=== PATIENT | female | born 1950 | race Hispanic/Latino ===

== ENCOUNTER 2024-11-13 19:48 | Emergency (ER) | payer OTHER ==
--- NOTE | 2024-11-13 21:23 | RAD REPORT ---
EXAM: C Spine Wo Con HISTORY:neck pain COMPARISON: None TECHNIQUE: Multiple contiguous axial images were obtained in a CT of the cervical spine without contr ast. Sagittal and coronal reformats were performed. One or more of the following dose reduction techniques were used: Automated exposure control, adjustment of the mA and kV according to patient si ze, and iterative reconstruction. Unless otherwise specified, incidental findings do not require dedicated imaging follow-up. FINDINGS: Mild anterior subluxation C3 on C4. Mild posterior subluxation C4 on C5 and C5 on C6. Minimal posteri or subluxation C6 on C7. No fracture or dislocation Disc bulge and osteophytes C4-5 and C5-6 results in mild to moderate central spinal stenosis. IMPRESSION: No fracture seen Spondylosis C4-5 and C5-6 results in mild to moderate central spinal stenosis If clinically indicated further evaluation could be obtained with nonemergent MRI
[2024-11-13] MEDS ORDERED: KETOROLAC 30 MG/ML INJ ONE (21:25)
[2024-11-13] MEDS ORDERED: CYCLOBENZAPRINE 10 MG TAB ONE (21:26)
[2024-11-13 21:29] LABS: Absolute Lymphocytes (CBC) 2.2 K/uL (0.7-4.9); Hematocrit 34.2 % (36.0-45.0); Hemoglobin 11.9 g/dL (12.0-15.0); MCH 30.3 pg (27.0-35.0); MCHC 34.8 g/dL (32.0-36.0); MCV 87.1 fL (80-100); MPV 7.9 fL (7.6-11.3); Nucleated RBC Absolute Count 0.0 (0-0); Nucleated Red Blood Cells % 0.0 % (0-0); RBC Red Blood Cell Count 3.92 M/uL (3.86-4.86); White Blood Count 6.20 thou/uL (4.3-10.9)
[2024-11-13 21:36] LABS: PT Prothrombin Time 11.6 SECONDS (10-13.0); Protime INR 1.03
--- NOTE | 2024-11-13 21:41 | RAD REPORT ---
EXAM: CT CHEST, ABDOMEN AND PELVIS WITHOUT CONTRAST CLINICAL INDICATION: Chest and abdominal pain. Dysphasia TECHNIQUE: CT chest, abdomen and pelvis was performed, without IV contrast, as per department protoco l. Axial, sagittal and coronal reconstructions were obtained. One or more of the following dose reduction techniques were used: Automated exposure control, adjustment of the mA and/or kV according to the patient size, and/or iterative reconstruction. Unless otherwise specified, incidental findings do not require dedicated imaging follow-up. The lack of IV and oral contrast limits evaluation of the mediastinum, kobi, vessels, organs and giana l. COMPARISON: None FINDINGS: Ill-defined 2 cm mostly groundglass opacity right upper lobe. Mild right lower lobe opacities probably chronic. A few areas of scarring or subsegmental atelectasis left lower lobe. No mediastinal or hilar lymphadenopathy seen. No pleural effusion. No pericardial effusion. Small hiatal hernia. No gross abnormality of the esophagus although evaluation of the intrinsic lesio ns somewhat limited. Left nephrectomy Right kidney grossly normal Liver, spleen, pancreas and adrenals grossly normal Moderate amount of stool within the transverse and right colon. Hysterectomy. No adnexal mass. There is no evidence of diverticulitis Small umbilical hernia 12 mm calcification is present at the junction of the cecum and appendix. The appendix is normal size . No stranding within the adjacent fat. IMPRESSION: Ill-defined mostly groundglass opacity right upper lobe .Most likely this is either inflammatory or s carring. It is recommended that patient have a CT chest in 3 months to assess stability Left nephrectomy Moderate amount of stool right and transverse colon
--- NOTE | 2024-11-13 21:42 | RAD REPORT ---
Procedure: Chest Single View HISTORY: Chest pain FINDINGS: Small right upper lobe opacity seen on the CT chest same date is not well visualized on this exam. Pl ease refer to the CT report for recommendation The lungs appear clear of acute infiltrate. No significant pleural effusion noted. The heart is normal size.
[2024-11-13 21:52] LABS: ALT/SGPT 19 U/L (13-56); AST/SGOT 16 U/L (15-37); Albumin 3.5 g/dL (3.4-5.0); Albumin/Globulin Ratio 0.9 (1.1-1.8); Alkaline Phosphatase 105 U/L (45-117); Anion Gap 9.5 mEq/L (5.0-15.0); BUN Blood Urea Nitrogen 21 mg/dL (7-18); Globulin 3.8 g/dL (2.3-3.5); Glucose Level 112 mg/dL (74-106); Magnesium 2.1 mg/dL (1.6-2.4); NT PRO-BNP 225 pg/mL (<450); Potassium 3.5 mEq/L (3.5-5.1); Troponin High Sensitivity 5.3 pg/mL (<58.9)
[2024-11-13 21:53] LABS: Bilirubin Indirect, Calculated 0.3 mg/dL (0.2-0.8)
--- NOTE | 2024-11-13 23:29 | EDPHYS ---
Physician Documentation [facility] Name: Roseanne Juárez Age: 74 yrs Sex: Female : 1950 Arrival Date: 11/13/2024 Time: 19:48 Bed DX4 Private MD: ED Physician Akira Munoz HPI: 11/13 20:04 This 74 yrs old Other Race Female presents to ER via Unassigned with complaints of sp4 Epigastric Pain, Neck Pain, <24hrs Old, under breast pain, Dizziness. 11/14 07:21 74-year-old female presents with complaint of chronic persistent neck pain worsening sp4 today associated with feeling unwell and dizziness.. Historical: - Allergies: 11/13 20:38 Morphine; me1 20:38 Iodine; me1 - PMHx: 20:38 kidney cancer; Hypertensive disorder; Hypothyroidism; Diverticulitis; Gastroesophageal me1 reflux disease; hernia; - PSHx: 20:38 Total abdominal hysterectomy; excision of left kidney; Operative procedure on knee; me1 - Immunization history:: Adult Immunizations up to date. - Infectious Disease History:: Denies. - Social history:: Smoking status: Patient denies any tobacco usage or history of. - Family history:: not pertinent. ROS: 11/14 07:22 Constitutional: Negative for fever, chills, and weight loss, positive dizziness, sp4 positive for neck pain, positive for feeling unwell, positive epigastric pain All other systems are negative, Exam: 07:19 Constitutional: This is a well developed, well nourished patient who is awake, alert, sp4 and in no acute distress. Head/Face: Normocephalic, atraumatic. Eyes: Pupils equal round and reactive to light, extra-ocular motions intact. Lids and lashes normal. Conjunctiva and sclera are not injected. Cornea within normal limits. Periorbital areas with no swelling, redness, or edema. ENT: Nares patent. No nasal discharge, no septal abnormalities noted. Tympanic membranes are normal and external auditory canals are clear. Oropharynx with no redness, swelling, or masses, exudates, or evidence of obstruction, uvula midline. Mucous membranes moist. Neck: Trachea midline, no thyromegaly or masses palpated, and no cervical lymphadenopathy. Supple, full range of motion without nuchal rigidity, or vertebral point tenderness. Chest/axilla: Normal chest wall appearance and motion. Nontender with no deformity. No lesions are appreciated. Cardiovascular: Regular rate and rhythm with a normal S1 and S2. No gallops, murmurs, or rubs. No pulse deficits. Respiratory: Lungs have equal breath sounds bilaterally, clear to auscultation and percussion. No rales, rhonchi or wheezes noted. No increased work of breathing, no retractions or nasal flaring. Abdomen/GI: Soft, with normal bowel sounds. No distension or tympany. No guarding or rebound. No evidence of tenderness throughout. Back: No spinal tenderness. No costovertebral tenderness. Skin: Warm, dry with normal turgor. Normal color with no rashes, no lesions, and no evidence of cellulitis. MS/ Extremity: Pulses equal, no cyanosis. Neurovascular intact. Full, normal range of motion. Neuro: Awake and alert, GCS 15, oriented to person, place, time, and situation. Cranial nerves II-XII grossly intact. Motor strength 5/5 in all extremities. Sensory grossly intact. Psych: Awake, alert, with orientation to person, place and time. Behavior, mood, and affect are within normal limits 07:19 ECG was reviewed by the Attending Physician. EKG 2209 normal sinus rhythm normal EKG Vital Signs: 11/13 20:35 BP 157 / 80; Pulse 76; Resp 18; Temp 98.1; Pulse Ox 100% ; Weight 65.77 kg; Height 5 me1 ft. 3 in. ; Pain 7/10; 23:58 BP 140 / 81; Pulse 73; Resp 18 S; Pulse Ox 100% on R/A; ha1 20:35 Body Mass Index 25.69 (65.77 kg, 160.02 cm) me1 20:35 Pain Scale: Adult me1 [place] Coma Score: 11/14 07:19 Eye Response: spontaneous(4). Motor Response: obeys commands(6). Verbal Response: sp4 oriented(5). Total: 15. MDM: 11/13 20:05 Medical Screening Exam initiated sp4 11/14 07:22 Differential diagnosis: Cervical Raiculopathy Cervical Spondylosis cervical strain, sp4 Degenerative Disc Disease Diabetic Neuropathy torticollis. Data reviewed: vital signs, nurses notes, old medical records, lab test result(s), EKG, radiologic studies, CT scan. Consideration of Admission/Observation Escalation of care including admission/observation considered. 07:23 ED course: FINDINGS: Small right upper lobe opacity seen on the CT chest same date is sp4 not well visualized on this exam. Please refer to the CT report for recommendation The lungs appear clear of acute infiltrate. No significant pleural effusion noted. The heart is normal size. . ED course: FINDINGS: Mild anterior subluxation C3 on C4. Mild posterior subluxation C4 on C5 and C5 on C6. Minimal posterior subluxation C6 on C7. No fracture or dislocation Disc bulge and osteophytes C4-5 and C5-6 results in mild to moderate central spinal stenosis. IMPRESSION: No fracture seen Spondylosis C4-5 and C5-6 results in mild to moderate central spinal stenosis If clinically indicated further evaluation could be obtained with nonemergent MRI. ED course: COMPARISON: None FINDINGS: Ill-defined 2 cm mostly groundglass opacity right upper lobe. Mild right lower lobe opacities probably chronic. A few areas of scarring or subsegmental atelectasis left lower lobe. No mediastinal or hilar lymphadenopathy seen. No pleural effusion. No pericardial effusion. Small hiatal hernia. No gross abnormality of the esophagus although evaluation of the intrinsic lesions somewhat limited. Left nephrectomy Right kidney grossly normal Liver, spleen, pancreas and adrenals grossly normal Moderate amount of stool within the transverse and right colon. Hysterectomy. No adnexal mass. There is no evidence of diverticulitis Small umbilical hernia 12 mm calcification is present at the junction of the cecum and appendix. The appendix is normal size. No stranding within the adjacent fat. IMPRESSION: Ill-defined mostly ground glass opacity right upper lobe .Most likely this is either inflammatory or scarring. It is recommended that patient have a CT chest in 3 months to assess stability Left nephrectomy Moderate amount of stool right and transverse colon. . 11/13 20:05 Order name: Basic Metabolic Panel; Complete Time: 23:16 sp4 11/13 20:05 Order name: CBC with Diff; Complete Time: 23:16 sp4 11/13 20:05 Order name: LFT's; Complete Time: 23:16 sp4 11/13 20:05 Order name: Magnesium; Complete Time: 23:16 sp4 11/13 20:05 Order name: NT PRO-BNP; Complete Time: 23:16 sp4 11/13 20:05 Order name: PT-INR; Complete Time: 23:16 sp4 11/13 20:05 Order name: Troponin HS; Complete Time: 23:16 sp4 11/13 21:05 Order name: TSH sp4 11/13 21:05 Order name: T4 Free sp4 11/13 20:05 Order name: XRAY Chest (1 view); Complete Time: 23:16 sp4 11/13 20:50 Order name: CT C Spine; Complete Time: 23:16 sp4 11/13 20:50 Order name: CT Chest Abdomen Pelvis W/O Contrast; Complete Time: 23:16 sp4 11/13 20:05 Order name: EKG - Nurse/Tech; Complete Time: 22:11 sp4 11/13 20:05 Order name: IV Saline Lock; Complete Time: 21:17 sp4 11/13 20:05 Order name: Labs collected and sent; Complete Time: 21:17 sp4 11/13 20:05 Order name: O2 Per Protocol; Complete Time: 21:17 sp4 11/13 20:05 Order name: O2 Sat Monitoring; Complete Time: 21:17 sp4 EC/04 22:09 Rate is 65 beats/min. Rhythm is regular, Normal Sinus Rhythm. QRS [place] is Normal. AR sp4 interval is normal. QRS interval is normal. QT interval is normal. No Q waves. T waves are Normal. No ST changes noted. Clinical impression: Normal ECG. Interpreted by me. Reviewed by me. Administered Medications: 21:47 Drug: Ketorolac IVP 30 mg IVP once Route: IVP; Site: left antecubital; kl 22:10 Follow up: Response: No adverse reaction; Marked relief of symptoms; Pain is decreased ha1 21:47 Drug: Cyclobenzaprine PO 10 mg PO once Route: PO; kl 22:10 Follow up: Response: No adverse reaction; Marked relief of symptoms ha1 Disposition Summary: 11/13/24 23:29 Discharge Ordered Notes: Location: Home sp4 Problem: new sp4 Symptoms: have improved sp4 Condition: Stable sp4 Diagnosis - Cervical spondylosis, degenerative disc disease of the C-spine, acute moderate sp4 constipation, right upper lung opacification Followup: sp4 - With: Rayo Quinn MD - When: 7 - 10 days - Reason: Recheck today's complaints Discharge Instructions: - Discharge Summary Sheet sp4 - Degenerative Disk Disease sp4 Forms: - Patient Portal Instructions sp4 Prescriptions: - Cyclobenzaprine 10 mg Oral Tablet - take 1 tablet ORAL route every 8 hours As needed; 30 tablet; Refills: 0, sp4 Product Selection Permitted - Tramadol 50 mg Oral tablet - take 1 tablet ORAL route every 8 hours as needed; 25 tablet; Refills: 0, sp4 Product Selection Permitted Signatures: Dispatcher [employer] EDOmaira Barajas RN RN Akira Muller MD MD sp4 Arianna Jama RN RN dc1 Gianna Salazar RN 1 Corrections: (The following items were deleted from the chart) 20:05 20:05 BASIC METABOLIC PANEL+C.LAB.BRZ ordered. EDMS EDMS 20:05 20:05 CBC+H.LAB.BRZ ordered. EDMS EDMS 20:05 20:05 HEPATIC FUNCTION+C.LAB.BRZ ordered. EDMS EDMS 20:05 20:05 MAGNESIUM+C.LAB.BRZ ordered. EDMS EDMS 20:05 20:05 PROBNP+C.LAB.BRZ ordered. EDMS EDMS 20:05 20:05 PROTIME (+INR)+COAG.LAB.BRZ ordered. EDMS EDMS 20:05 20:05 Troponin High Sensitivity+C.LAB.BRZ ordered. EDMS EDMS 20:05 20:05 Chest Single View+RAD.RAD.BRZ ordered. EDMS EDMS 20:50 20:50 C Spine Wo Con+CT.RAD.BRZ ordered. EDMS EDMS 20:50 20:50 Chest Abdomen Pelvis Wo Con+CT.RAD.BRZ ordered. EDMS EDMS 21:05 21:05 THYROID STIMULAT HORMONE+C.LAB.BRZ ordered. EDMS EDMS 21:05 21:05 T4 FREE+C.LAB.BRZ ordered. EDMS EDMS
--- NOTE | 2024-11-13 23:29 | ER ---
Nurse's Notes [facility] Name: Roseanne Juárez Age: 74 yrs Sex: Female : 1950 Arrival Date: 11/13/2024 Time: 19:48 Bed DX4 Private MD: Diagnosis: Cervical spondylosis, degenerative disc disease of the C-spine, acute moderate constipation, right upper lung opacification Presentation: 11/13 20:35 Chief complaint: Patient states: neck pain for a couple of days 08/19, epigastric pain me1 06/19 with intermittent sharp pains that are under left lateral ribs and dizziness for a couple of days. Coronavirus screen: Vaccine status: Patient reports receiving the 2nd dose of the covid vaccine. Ebola Screen: No symptoms or risks identified at this time. Initial Sepsis Screen: Does the patient meet any 2 criteria? No. Patient's initial sepsis screen is negative. Does the patient have a suspected source of infection? No. Patient's initial sepsis screen is negative. Risk Assessment: Do you want to hurt yourself or someone else? Patient reports no desire to harm self or others. Onset of symptoms is unknown. 20:35 Method Of Arrival: Ambulatory me1 20:35 Acuity: JUAN MANUEL 3 me1 Triage Assessment: 22:00 General: Appears uncomfortable, Behavior is calm. Pain: Complains of pain in NECK AND ha1 ARMS. Neuro: Level of Consciousness is awake, alert, obeys commands, Oriented to person, place, time, situation. Cardiovascular: Capillary refill < 3 seconds Patient's skin is warm and dry. Respiratory: Airway is patent Respiratory effort is even, unlabored, Respiratory pattern is symmetrical. Historical: - Allergies: 20:38 Morphine; me1 20:38 Iodine; me1 - PMHx: 20:38 kidney cancer; Hypertensive disorder; Hypothyroidism; Diverticulitis; Gastroesophageal me1 reflux disease; hernia; - PSHx: 20:38 Total abdominal hysterectomy; excision of left kidney; Operative procedure on knee; me1 - Immunization history:: Adult Immunizations up to date. - Infectious Disease History:: Denies. - Social history:: Smoking status: Patient denies any tobacco usage or history of. - Family history:: not pertinent. Screenin:55 [facility] ED Fall Risk Assessment (Adult) History of falling in the last 3 months, ha1 including since admission No falls in past 3 months (0 pts) Confusion or Disorientation No (0 pts) Intoxicated or Sedated No (0 pts) Impaired Gait No (0 pts) Mobility Assist Device Used No (0 pt) Altered Elimination No (0 pt) Score/Fall Risk Level 0 - 2 = Low Risk Oriented to surroundings, Maintained a safe environment, Educated pt \T\ family on fall prevention, incl call for assistance when getting out of bed, Hourly rounding (assess needs \T\ fall precautionary measures) done. Abuse screen: Denies threats or abuse. Denies injuries from another. Nutritional screening: No deficits noted. Tuberculosis screening: No symptoms or risk factors identified. Assessment: 23:58 Reassessment: Patient and/or family updated on plan of care and expected duration. Pain ha1 level reassessed. Patient is alert, oriented x 3, equal unlabored respirations, skin warm/dry/pink. Patient states feeling better. Patient states symptoms have improved. Vital Signs: 20:35 BP 157 / 80; Pulse 76; Resp 18; Temp 98.1; Pulse Ox 100% ; Weight 65.77 kg; Height 5 me1 ft. 3 in. ; Pain 7/10; 23:58 BP 140 / 81; Pulse 73; Resp 18 S; Pulse Ox 100% on R/A; ha1 20:35 Body Mass Index 25.69 (65.77 kg, 160.02 cm) me1 20:35 Pain Scale: Adult me1 [place] Coma Score: 11/14 07:19 Eye Response: spontaneous(4). Motor Response: obeys commands(6). Verbal Response: sp4 oriented(5). Total: 15. ED Course: 11/13 19:56 Patient arrived in ED. im 20:04 Akira Munoz MD is Attending Physician. sp4 20:35 Patient has correct armband on for positive identification. Bed in low position. Call ha1 light in reach. Side rails up X 1. 20:38 Triage completed. me1 20:38 Arm band placed on Patient placed in waiting room. me1 21:08 XRAY Chest (1 view) In Process Unspecified. EDMS 21:09 CT C Spine In Process Unspecified. EDMS 21:09 CT Chest Abdomen Pelvis W/O Contrast In Process Unspecified. EDMS 21:17 Basic Metabolic Panel Sent. ha1 21:17 CBC with Diff Sent. ha1 21:17 LFT's Sent. ha1 21:17 Magnesium Sent. ha1 21:17 NT PRO-BNP Sent. ha1 21:17 PT-INR Sent. ha1 21:17 Troponin HS Sent. ha1 22:11 EKG done, by oil burner technician. reviewed by Akira Munoz MD. ts3 23:28 Rayo Quinn MD is Referral Physician. sp4 23:57 No provider procedures requiring assistance completed. IV discontinued, intact, ha1 bleeding controlled, No redness/swelling at site. Pressure dressing applied. Administered Medications: 21:47 Drug: Ketorolac IVP 30 mg IVP once Route: IVP; Site: left antecubital; kl 22:10 Follow up: Response: No adverse reaction; Marked relief of symptoms; Pain is decreased ha1 21:47 Drug: Cyclobenzaprine PO 10 mg PO once Route: PO; kl 22:10 Follow up: Response: No adverse reaction; Marked relief of symptoms ha1 Medication: 23:56 VIS not applicable for this client. ha1 Outcome: 23:29 Discharge ordered by . sp4 23:57 Discharged to home ambulatory, with family, ha1 23:57 Condition: stable 23:57 Discharge instructions given to patient, Instructed on discharge instructions, follow up and referral plans. medication usage, Demonstrated understanding of instructions, follow-up care, medications, Prescriptions given X 2, 23:58 Patient left the ED. ha1 Signatures: Dispatcher [employer] Omaira Womack RN RN kl Ayala, Heidy, RN RN ha1 Potepalov, Sergey, MD MD sp4 Mira Clarke Michelle, RN RN oh1 Estella Milton ts3
[2024-11-14 00:15] VITALS: TEMP 98.1; O2SAT 100
[2024-11-14 00:17] VITALS: BP 140/81
[2024-11-14 00:35] LABS: Thyroid Stimulating Hormone 2.79 uIU/mL (0.358-3.740)
== END 2024-11-13 23:58 | disposition home or self-care (01) ==
LOC: ER 19:48
DX: M47.892 Other spondylosis, cervical region (principal); K59.00 Constipation, unspecified; R91.8 Other nonspecific abnormal finding of lung field
CPT/HCPCS: 36415; 71045; 71250; 72125; 74176; 80048; 80076; 83735; 83880; 84484; 85025; 85610; 93005; 96374; 99284; J1885

== ENCOUNTER 2024-11-23 09:26 | Emergency (ER) | payer OTHER ==
--- NOTE | 2024-11-23 10:31 | RAD REPORT ---
EXAM: CT PELVIS WITHOUT CONTRAST HISTORY: PAIN COMPARISON: None TECHNIQUE: Multiple contiguous axial images were obtained and a CT of the pelvis with IV contrast. Sa gittal and coronal reformats were performed. One or more of the following dose reduction techniques were used: Automated exposure control, adjustment of the mA and/or kV according to patient size, and/ or iterative reconstruction. FINDINGS: No pelvic fractures are seen. No fracture of either proximal femur is seen. Moderate lower lumbar degenerative changes. The visualized intrapelvic structures are essentially unremarkable. There is mild diverticulosis of t he sigmoid colon. The soft tissues surrounding the pelvis are unremarkable. IMPRESSION: No acute intrapelvic finding.
--- NOTE | 2024-11-23 10:33 | ER ---
Nurse's Notes [facility] Name: Roseanne Juárez Age: 74 yrs Sex: Female : 1950 Arrival Date: 11/23/2024 Time: 09:26 Bed IW2 Private MD: Diagnosis: Low back pain Presentation: 11/23 09:40 Chief complaint: Patient states: fell on buttock on Friday, has pain to tailbone iw since then. Coronavirus screen: At this time, the client does not indicate any symptoms associated with coronavirus-19. Ebola Screen: No symptoms or risks identified at this time. Initial Sepsis Screen: Does the patient meet any 2 criteria? No. Patient's initial sepsis screen is negative. Does the patient have a suspected source of infection? No. Patient's initial sepsis screen is negative. Risk Assessment: Do you want to hurt yourself or someone else? Patient reports no desire to harm self or others. 09:40 Method Of Arrival: Ambulatory iw 09:40 Acuity: JUAN MANUEL 4 iw Historical: - Allergies: 09:42 Iodine; iw 09:42 Morphine; iw - PMHx: 09:42 Diverticulitis; Gastroesophageal reflux disease; Hernia; Hypertensive disorder; iw Hypothyroidism; kidney cancer; - PSHx: 09:42 excision of left kidney; Operative procedure on knee; Total abdominal hysterectomy; iw - Infectious Disease History:: Denies. Vital Signs: 09:40 BP 122 / 70; Pulse 76; Resp 18; Pulse Ox 100% on R/A; Weight 67.13 kg; Height 5 ft. 4 iw in. ; Pain 7/10; 09:40 Body Mass Index 25.40 (67.13 kg, 162.56 cm) iw 09:40 Pain Scale: Adult iw ED Course: 09:29 Patient arrived in ED. al6 09:31 Pauline Jenkins FNP-C is PHCP. kb 09:31 Ismael Palacios MD is Attending Physician. kb 09:41 Triage completed. iw 09:42 Arm band placed on. iw 10:10 CT Pelvis wo Cont In Process Unspecified. EDMS 10:37 Katherin Olea, RN is Primary Nurse. iw Administered Medications: No medications were administered Outcome: 10:32 Discharge ordered by . kb 10:37 Patient left the ED. iw Signatures: Dispatcher [employer] Pauline Thapa, LACEWORKER-C LACEWORKER-Ckb Katherin Olea, RN RN Nicolette Pardo6
--- NOTE | 2024-11-23 10:33 | EDPHYS ---
Physician Documentation [facility] Name: Roseanne Juárez Age: 74 yrs Sex: Female : 1950 Arrival Date: 11/23/2024 Time: 09:26 Bed IW2 Private MD: ED Physician Ismael Palacios HPI: 11/23 09:37 This 74 yrs old Female presents to ER via Unassigned with complaints of Fall kb Injury. 09:37 Pt is a 74 year old female who presents for pain to [facility] after a fall that occurred kb on Friday. States she tripped over something and landed on buttocks. Denies any other injuries or pain. Historical: - Allergies: 09:42 Iodine; iw 09:42 Morphine; iw - PMHx: 09:42 Diverticulitis; Gastroesophageal reflux disease; Hernia; Hypertensive disorder; iw Hypothyroidism; kidney cancer; - PSHx: 09:42 excision of left kidney; Operative procedure on knee; Total abdominal hysterectomy; iw - Infectious Disease History:: Denies. ROS: 09:37 Constitutional: As per HPI kb Exam: 09:40 Constitutional: This is a well developed, well nourished patient who is awake, alert, kb and in no acute distress. Head/Face: Normocephalic, atraumatic. ENT: Moist Mucous membranes Cardiovascular: Regular rate Respiratory: Respirations even and unlabored. No increased work of breathing. Talking in full sentences Skin: Warm, dry with normal turgor. Normal color. MS/ Extremity: Pulses equal, no cyanosis. Neurovascular intact. Full, normal range of motion. Neuro: Awake and alert, GCS 15, oriented to person, place, time, and situation. 09:40 Back: pain, that is moderate, of the sacrum, left low back and right low back, ROM is painful, normal spinal alignment noted, Vital Signs: 09:40 BP 122 / 70; Pulse 76; Resp 18; Pulse Ox 100% on R/A; Weight 67.13 kg; Height 5 ft. 4 iw in. ; Pain 08/19; 09:40 Body Mass Index 25.40 (67.13 kg, 162.56 cm) iw 09:40 Pain Scale: Adult iw MDM: 09:31 Medical Screening Exam initiated kb 09:38 Data reviewed: vital signs, nurses notes. kb 10:32 Differential diagnosis: contusion, fracture, strain. Counseling: I had a detailed kb discussion with the patient and/or guardian regarding the historical points, exam findings, and any diagnostic results supporting the discharge/admit diagnosis, radiology results, the need for outpatient follow up, a family practitioner, to return to the emergency department if symptoms worsen or persist or if there are any questions or concerns that arise at home. 11/23 09:39 Order name: CT Pelvis wo Cont; Complete Time: 10:32 kb Administered Medications: No medications were administered Disposition: 16:05 Co-signature as Attending Physician, Ismael Palacios MD I reviewed the patient's care rn provided by the Advanced Practice Provider and agree with the diagnosis and treatment plan. Disposition Summary: 11/23/24 10:32 Discharge Ordered Notes: Location: Home kb Condition: Stable kb Diagnosis - Low back pain kb Followup: kb - With: Emergency Department - When: As needed - Reason: Worsening of condition Followup: kb - With: Private Physician - When: 2 - 3 days - Reason: Recheck today's complaints, Continuance of care, Re-evaluation by your physician Discharge Instructions: - Discharge Summary Sheet kb - Acute Back Pain, Adult kb Forms: - Medication Reconciliation Form kb - Antibiotic Education kb - Prescription Opioid Use kb - Patient Portal Instructions kb - Leadership Thank You Letter kb Prescriptions: - Diclofenac Sodium 75 mg Oral tablet, delayed release (enteric coated) - take 1 tablet ORAL route 2 times per day As needed; 30 tablet; Refills: 0, kb Product Selection Permitted - orphenadrine citrate 100 mg Oral Tablet Sustained Release - take 1 tablet ORAL route 2 times per day As needed; 20 tablet; Refills: 0, kb Product Selection Permitted Signatures: Dispatcher [employer] Pauline Thapa, LUCY-C LUCY-Katherin Medel RN RN Ismael Landry MD MD rn research: (The following items were deleted from the chart) 09:40 09:40 Pelvis Wo [email or web address] ordered. EDMN JASON
[2024-11-23 18:38] VITALS: BP 122/70; O2SAT 100
== END 2024-11-23 10:37 | disposition home or self-care (01) ==
LOC: ER 09:26
DX: M54.50 Low back pain, unspecified (principal)
CPT/HCPCS: 72192; 99281